=== PATIENT | female | born 1935 | race Caucasian/White ===

== ENCOUNTER 2018-11-08 10:57 | Inpatient (IN) | payer MEDICARE, BC ==
[~2018-11-08] VITALS: Ht 162.6 cm; Wt 44.5 kg
[~2018-11-08 10:57] MED LIST: ASPI81TA31 PO; LEVO75TA7 PO; MIDO5TAB PO; ONDA4TAB5 PO; SERT25TA PO; SULF1TAB48 PO
[2018-11-08] MEDS ORDERED: ACETAMINOPHEN 650 MG SUPP.RECT RC ONE ×3 (11:06→12:36)
[2018-11-08] MEDS ORDERED: IV NORMAL SALINE 500 ML BAG IV ONE (11:15)
[2018-11-08 11:20] LABS: *BILIRUBIN,URIN NEGATIVE (NEGATIVE); *BLOOD, URINE 3+ (NEGATIVE); *CLARITY,URINE CLOUDY (CLEAR); *COLOR,URINE LIGHT YELLOW (YELLOW); *KETONES,URINE NEGATIVE (NEGATIVE); *UROBILINOGEN,URINE 0.2 E.U./dl (NORMAL); LEUKOCYTE ESTERASE ,URINE 3+ (NEGATIVE); NITRITE, URINE NEGATIVE (NEGATIVE); UGLUCOSE NEGATIVE (NEGATIVE)
[2018-11-08 11:27] LABS: RBC,URINE TNTC /HPF (0-3)
[2018-11-08 11:28] LABS: BACTERIA,URINE MANY /HPF (NONE SEEN); SQUAMOUS EPITHELIAL CELL,UR NONE SEEN /HPF (NONE SEEN)
[2018-11-08 11:36] LABS: BASOPHILS % (AUTO) 0.6 % (0.0-2.0); EOSINOPHILS % (AUTO) 0.9 % (0.0-7.0); HEMATOCRIT 31.1 % (31.2-41.9); LYMPHOCYTES # (AUTO) 1.2 K/uL (20.0-40.0); LYMPHOCYTES % (AUTO) 21.9 % (20.5-51.5); MEAN CORPUSCULAR HEMOGLOBIN 27.9 uug (24.7-32.8); MEAN CORPUSCULAR HGB CONC 32 g/dL (32.3-35.6); MEAN CORPUSCULAR VOLUME 86.2 fL (75.5-95.3); MONOCYTES # (AUTO) 0.4 K/uL (2.0-10.0); MONOCYTES % (AUTO) 7.9 % (0.0-11.0); NEUTROPHILS # (AUTO) 3.8 K/uL (1.8-8.9); NEUTROPHILS % (AUTO) 68.7 % (38.5-71.5); PLATELET COUNT (AUTO) 450 K/uL (179-408); WHITE BLOOD COUNT (AUTO) 5.5 K/uL (3.8-11.8)
[2018-11-08 11:47] LABS: CARBON DIOXIDE 22 mmol/L (21-32); CHLORIDE 106 mmol/L (98-107); CREATININE 0.7 mg/dL (0.6-1.3); GLUCOSE 107 mg/dL (74-106); POTASSIUM 3.8 mmol/L (3.5-5.1); UREA NITROGEN, BLOOD 19 mg/dL (7-18)
[2018-11-08 11:53] LABS: ALANINE AMINOTRANSFERASE 13 U/L (14-59); ALKALINE PHOSPHATASE 130 U/L (50-136); ASPARTATE AMINOTRANSFERASE 8 U/L (15-37); BILIRUBIN,DIRECT 0.1 mg/dL (0.0-0.2); BILIRUBIN,TOTAL 0.2 mg/dL (0.2-1.0)
[2018-11-08] MEDS ORDERED: IV NORMAL SALINE 1000 ML BAG IV ONE (12:15)
[2018-11-08] MEDS ORDERED: MEROPENEM 1,000 MG in IV NORMAL SALINE 100 ML IV ONE (12:15)
[2018-11-08] MEDS ORDERED: MEROPENEM 1,000 MG in IV NORMAL SALINE 250 ML IV ONE (12:15)
--- NOTE | 2018-11-08 12:30 | NUR ---
Pt to be admitted to tele, SBAR report given to Margarita RN via telephone. Pt resting with NAD noted at this time. spoke with pt's family regarding plan of care.
--- NOTE | 2018-11-08 13:00 | NUR ---
DR. SAL AT BEDSIDE.
--- NOTE | 2018-11-08 13:05 | NUR ---
Pt trans to tele floor, NAD noted.
--- NOTE | 2018-11-08 13:30 | NUR ---
received patient from Er and admitted to tele, patient admitted with DX sepsis, patient is confused but alert and oriented x1, no sob noted at this time, no c/o pain at this time. MD aware patient in the unit. bed low position and bed alarm on, side rails up x2. treatment plan continue.
[2018-11-08] MEDS ORDERED: MIDODRINE HCL 5 MG TABLET PO PRN (13:45)
[2018-11-08] MEDS ORDERED: ACETAMINOPHEN 650 MG SUPP.RECT RC PRN (13:45)
[2018-11-08] MEDS ORDERED: ONDANSETRON 4 MG/2 ML VIAL IV PRN (13:45)
[2018-11-08] MEDS: ENOXAPARIN SODIUM 40 MG/0.4 ML DISP.SYRIN SQ SCH (13:45)
[2018-11-08] MEDS ORDERED: MEROPENEM 1 G in IV NORMAL SALINE 100 ML IV SCH (14:00)
[2018-11-08 16:25] VITALS: BP 97/36
[2018-11-08] MEDS: IV D5/ 0.9% NACL 1,000 ML IV PRN (17:16)
--- NOTE | 2018-11-08 18:55 | NUR ---
patient is confused but alert and oriented to name, unable to comprehend, no sob noted at this time, no c/o pain at this time. . bed low position and bed alarm on, side rails up x2. IV fluid continue.treatment plan continue with night nurse.
[2018-11-08 20:00] VITALS: BP 103/78
--- NOTE | 2018-11-08 20:00 | NUR ---
Received patient AAOx1 to self. No acute distress at this time. No signs and symptoms of acute distress at this time. Denies pain. No SOB. IV on right wrist intact and patent with D5 NS running at 100ml/hr. Comfort and safety measures implemented. Bed in lowest and locked position. Call light within reach. All needs met at this time. Will continue to monitor throughout shift.
[2018-11-08 23:55] VITALS: BP 95/38
[2018-11-09] MEDS ORDERED: MEROPENEM 1 G in IV NORMAL SALINE 100 ML IV SCH ×2
[2018-11-09] MEDS: MEROPENEM 1 G in IV NORMAL SALINE 100 ML IV SCH ×3 (00:04→23:07)
[2018-11-09 03:05] VITALS: BP 97/58
[2018-11-09 03:42] VITALS: BP 90/36
[2018-11-09] MEDS: IV D5/ 0.9% NACL 1,000 ML IV PRN ×2 (06:09→19:07)
--- NOTE | 2018-11-09 06:16 | NUR ---
Patient slept well between care. Patient is now AAOx3. Denies pain. No SOB. Afebrile. Continue NPO. Swallow eval to be completed. Patient SBP trended 90's throughout shift. Last BP 93/40. Sinus moises on tele monitor. D5 NS running at 100ml/hr. Spoke to randy Murphy on the phone. Discussed plan of care. Verbalized understanding. Call light within reach. Continue plan of care.
[2018-11-09 06:44] LABS: BASOPHILS % (AUTO) 0.5 % (0.0-2.0); EOSINOPHILS # (AUTO) 0.3 K/uL (0.0-0.7); EOSINOPHILS % (AUTO) 5.9 % (0.0-7.0); HEMATOCRIT 30.2 % (31.2-41.9); HEMOGLOBIN 9.8 g/dL (10.9-14.3); LYMPHOCYTES # (AUTO) 1.2 K/uL (20.0-40.0); LYMPHOCYTES % (AUTO) 21.5 % (20.5-51.5); MEAN CORPUSCULAR HEMOGLOBIN 28.3 uug (24.7-32.8); MEAN CORPUSCULAR HGB CONC 33 g/dL (32.3-35.6); MEAN CORPUSCULAR VOLUME 87.2 fL (75.5-95.3); MONOCYTES # (AUTO) 0.5 K/uL (2.0-10.0); MONOCYTES % (AUTO) 9.1 % (0.0-11.0); NEUTROPHILS # (AUTO) 3.4 K/uL (1.8-8.9); PLATELET COUNT (AUTO) 412 K/uL (179-408); RED BLOOD CELL COUNT(AUTO) 3.46 MIL/uL (3.63-4.92); WHITE BLOOD COUNT (AUTO) 5.5 K/uL (3.8-11.8)
[2018-11-09 07:00] LABS: CARBON DIOXIDE 24 mmol/L (21-32); CHLORIDE 111 mmol/L (98-107); CREATININE 0.6 mg/dL (0.6-1.3); GLUCOSE 82 mg/dL (74-106); MAGNESIUM 1.7 mg/dL (1.8-2.4); PHOSPHOROUS 2.1 mg/dL (2.5-4.9); POTASSIUM 3.6 mmol/L (3.5-5.1); UREA NITROGEN, BLOOD 16 mg/dL (7-18)
[2018-11-09 08:01] VITALS: BP 107/34
[2018-11-09] MEDS: ASPIRIN 81 MG TAB.CHEW PO SCH (08:38)
[2018-11-09] MEDS: SERTRALINE HCL 50 MG TABLET PO SCH (08:38)
[2018-11-09] MEDS: PANTOPRAZOLE SODIUM 40 MG VIAL IV SCH (08:38)
[2018-11-09 11:42] VITALS: BP 102/41
[2018-11-09] MEDS ORDERED: Z GUARD REMEDY PASTE 57 GM TUBE TOP PRN (11:45)
--- NOTE | 2018-11-09 11:47 | NUR ---
WOUND CARE CONSULT: PT PRESENTS WITH RT ELBOW SKIN TEAR, LEFT HAND DRY SCAB, BRUISING AND DISCOLORATION TO ARMS AND LEGS WELL NONBLANCHABLE REDNESS TO SACRAL AREA, PRESENT ON ADMISSION. RECOMMENDATIONS MADE FOR SKIN PROTECTION AND WOUND CARE. DISCUSSED WITH NURSING STAFF. UROSTOMY NOTED. PERIANAL RAISED AREAS NOTED. DEFER TO MD. WILL SEE PRN. MD IN AGREEMENT WITH PLAN OF CARE. Addendum: 11/09/18 at 1154 by JEFFREY LUCIO RN FIRST STEP LOW AIRLOSS MATTRESS ON ORDER.
[2018-11-09] MEDS: ENOXAPARIN SODIUM 40 MG/0.4 ML DISP.SYRIN SQ SCH (15:02)
[2018-11-09 16:00] VITALS: BP 101/48
[2018-11-09] MEDS ORDERED: NEUTRA PHOS PACKET PO ONE (16:00)
--- NOTE | 2018-11-09 18:41 | NUR ---
Initiated dressing on R elbow skin tear and mepilex on sacrum. Discoloration on extremities and elbow and feet edema noted. Assisted with feeding. Urostomy in place, strong odor noted. bed low and locked. bed alarm on. will cont to monitor.
--- NOTE | 2018-11-09 20:00 | NUR ---
PATIENT IS AWAKE, AAOX1 WITH CONFUSION. NO S/S OF PAIN OR ACUTE DISTRESS ON ASSESSMENT. SAFETY MEASURES IN PLACE, WILL CONTINUE TO MONITOR PATIENT
[2018-11-09] MEDS: Z GUARD REMEDY PASTE 57 GM TUBE TOP SCH (20:25)
[2018-11-09 20:29] VITALS: BP 95/42
[2018-11-10 06:32] VITALS: BP 122/47
--- NOTE | 2018-11-10 06:44 | NUR ---
PATIENT SLEEPING, NO S/S OF PAIN OR DISTRESS AT PRESENT. NO FEVER ON THIS SHIFT, EPISODES OF CONFUSION BUT ABLE TO REDIRECT. SAFETY MAINTAINED AT ALL TIMES
[2018-11-10] MEDS: IV D5/ 0.9% NACL 1,000 ML IV PRN ×2 (09:23→23:55)
[2018-11-10] MEDS: Z GUARD REMEDY PASTE 57 GM TUBE TOP SCH ×2 (09:28→20:33)
[2018-11-10] MEDS: SERTRALINE HCL 50 MG TABLET PO SCH (09:29)
[2018-11-10] MEDS: PANTOPRAZOLE SODIUM 40 MG VIAL IV SCH (09:29)
[2018-11-10] MEDS: ASPIRIN 81 MG TAB.CHEW PO SCH (09:29)
[2018-11-10 11:26] VITALS: BP 116/48
[2018-11-10] MEDS: MEROPENEM 1 G in IV NORMAL SALINE 100 ML IV SCH ×2 (11:38→23:52)
[2018-11-10] MEDS: ENOXAPARIN SODIUM 40 MG/0.4 ML DISP.SYRIN SQ SCH (13:24)
[2018-11-10 15:34] VITALS: BP 109/38
--- NOTE | 2018-11-10 18:42 | NUR ---
PATIENT AWAKE RESTING. NO S/S OF DISTRESS NOTED, DENIES ANY PAIN. CONFUSED BUT REDIRECTABLE. SAFETY PRECAUTIONS IMPLEMENTED. WILL ENDORSE CARE TO ONCOMING SHIFT.
--- NOTE | 2018-11-10 18:44 | NUR ---
PATIENT AWAKE, NO DISTRESS NOTED OR COMPLAINTS OF PAIN. FAMILY AT BEDSIDE. SAFETY PRECAUTIONS IMPLEMENTED. WILL ENDORSE CARE TO ONCOMING SHIFT.
--- NOTE | 2018-11-10 20:00 | NUR ---
Received patient from the day shift. Patient is AOx2. No acute distress noted at this time. Denies pain. Denies SOB. IV on right forearm is intact and patent is on D5NS running at 100ml/hr. Comfort and safety measures implemented. Bed is in low and locked position, rails are up x2. Call light within reach. All needs are met at this time. Will continue to monitor through the shift.
[2018-11-10 20:10] VITALS: BP 123/50
[2018-11-11 04:00] VITALS: BP 152/34
--- NOTE | 2018-11-11 06:31 | NUR ---
Patient is awake, AOx2, confused at times, poor short term memory. Attempted to leave the bed once. No acute distress noted at this time. Denies pain. Denies SOB. IV on right forearm is intact and patent is on D5NS running at 100ml/hr, dressing was changed. Skin tear was cleansed and dressed. Comfort and safety measures implemented. Bed is in low and locked position, rails are up x2. Call light within reach. All needs are met at this time. Will endorse the report to the day shift.
--- NOTE | 2018-11-11 07:15 | NUR ---
PATIENT RECEIVED ON BED, AWAKE AAOX2 WITH PERIODS OF FORGETFULNESS AND CONFUSION. NO ACUTE DISTRESS NOTED. IV ACCESS ON RIGHT FOREARM #22 INTACT AND PATENT RUNNING D5NS @ 100 CC/HR INFUSING WELL UROSTOMY IN PLACE AND DRAINING CLEAR YELLOW URINE. ON AIR MATTRESS BED ALARM ON, PATIENT HAS TENDENCY TO TRY TO GET OU OF BED. WOUND DRESSING ON RIGHT FOREARM CLEAN AND DRY. COMFORT MEASURES PROVIDED CALL LIGHT WITHIN REACH. WILL CONTINUE TO MONITOR CLOSELY.
[2018-11-11] MEDS: SERTRALINE HCL 50 MG TABLET PO SCH (09:33)
[2018-11-11] MEDS: ASPIRIN 81 MG TAB.CHEW PO SCH (09:33)
[2018-11-11] MEDS: PANTOPRAZOLE SODIUM 40 MG VIAL IV SCH (09:33)
[2018-11-11] MEDS: Z GUARD REMEDY PASTE 57 GM TUBE TOP SCH (09:34)
[2018-11-11 11:16] VITALS: BP 112/64
[2018-11-11] MEDS: MEROPENEM 1 G in IV NORMAL SALINE 100 ML IV SCH (12:21)
--- NOTE | 2018-11-11 12:23 | NUR ---
PATIENT REFUSED WOUND PICTURES FOR DISCHARGE AND ALSO REFUSED DRESSING CHANGE.
[2018-11-11] MEDS: ENOXAPARIN SODIUM 40 MG/0.4 ML DISP.SYRIN SQ SCH ×2 (13:15→13:17)
--- NOTE | 2018-11-11 13:45 | NUR ---
PATIENT DISCHARGED TO THE [facility] IN STABLE CONDITION. DISCHARGE PAPERS AND INSTRUCTIONS GIVEN AND EXPLAINED TO PATIENT AND PATIENT'S SON EZEQUIEL FRANCIS, PRESCRIPTIONS FAXED TO [facility] . REFUSED DISCHARGE PICTURES. IV ACCESS REMOVED WELL TOLERATED. ID BAND DISPOSED PROPERLY PATIENT LEFT HOSPITAL VIA AMBULANCE ACCOMPANIED BY 2 EMT.
== END 2018-11-11 13:30 | DRG 871 ==
LOC: ER 10:57 → TELE3 12:57 → MEDSURG3 11-09 10:24
DX: A40.9 Streptococcal sepsis, unspecified (principal); G93.41 Metabolic encephalopathy; N39.0 Urinary tract infection, site not specified; G91.2 (Idiopathic) normal pressure hydrocephalus; D68.59 Other primary thrombophilia; I50.42 Chronic combined systolic (congestive) and diastolic (congestive) heart failure; E46 Unspecified protein-calorie malnutrition; Z68.1 Body mass index [BMI] 19.9 or less, adult; R65.20 Severe sepsis without septic shock; F02.80 Dementia in other diseases classified elsewhere, unspecified severity, without behavioral disturbance, psychotic disturbance, mood disturbance, and anxiety; E03.9 Hypothyroidism, unspecified; K57.30 Diverticulosis of large intestine without perforation or abscess without bleeding; G30.9 Alzheimer's disease, unspecified; Z85.51 Personal history of malignant neoplasm of bladder; Z90.710 Acquired absence of both cervix and uterus; Z93.3 Colostomy status; Z93.6 Other artificial openings of urinary tract status; Z79.82 Long term (current) use of aspirin; Z79.899 Other long term (current) drug therapy; Z79.890 Hormone replacement therapy; Z85.841 Personal history of malignant neoplasm of brain; Z92.3 Personal history of irradiation; Z86.73 Personal history of transient ischemic attack (TIA), and cerebral infarction without residual deficits; Z74.01 Bed confinement status
CPT/HCPCS: 36415; 70030-TC; 71045; 83605; 83735; 84100; 85025; 85730; 87040; 87086; 87400; 92526; 92610; 93005; 97110; 97112; 97165; 97530; A4663; C9113; G0378; J1650; J2185; J3490; J7030; J7040; J7042

== ENCOUNTER 2018-11-19 18:25 | Inpatient (IN) | payer MEDICARE, BC ==
[~2018-11-19] VITALS: Ht 152.4 cm; Wt 47.4 kg
[~2018-11-19 18:25] MED LIST changes: -LEVO75TA7 PO; -ONDA4TAB5 PO; -SULF1TAB48 PO
[2018-11-19] MEDS ORDERED: ONDA4TAB10 PO (18:40)
[2018-11-19] MEDS ORDERED: LEVO75TA7 PO (18:40)
[2018-11-19] MEDS ORDERED: IV NORMAL SALINE 1000 ML BAG IV ONE (19:00)
[2018-11-19] MEDS ORDERED: CEFTRIAXONE 1 G in IV DEXTROSE 5% 50 ML IV ONE (19:00)
--- NOTE | 2018-11-19 19:23 | NUR ---
Received report from Shabana RN, pt. back from CT, alert to painful stimuli, daughter at bedside, roblero intact draining straw yellow fluid,
--- NOTE | 2018-11-19 19:35 | NUR ---
Urine specimen from urostomy bag, straw yellow w/ small amt. of sedimentation noted, sent top lab, Phleb. tech. at bedside for blood draw,
[2018-11-19] MEDS ORDERED: CEFTRIAXONE 1 G VIAL ONE (19:40)
[2018-11-19 19:47] LABS: *BILIRUBIN,URIN NEGATIVE (NEGATIVE); *BLOOD, URINE 2+ (NEGATIVE); *CLARITY,URINE CLOUDY (CLEAR); *COLOR,URINE YELLOW (YELLOW); *KETONES,URINE NEGATIVE (NEGATIVE); *UROBILINOGEN,URINE 0.2 E.U./dl (NORMAL); LEUKOCYTE ESTERASE ,URINE 3+ (NEGATIVE); NITRITE, URINE POSITIVE (NEGATIVE); UGLUCOSE NEGATIVE (NEGATIVE)
[2018-11-19 19:54] LABS: BASOPHILS # (AUTO) 0.3 K/uL (0.0-8.0); BASOPHILS % (AUTO) 1.1 % (0.0-2.0); HEMATOCRIT 31.3 % (31.2-41.9); HEMOGLOBIN 10.2 g/dL (10.9-14.3); LYMPHOCYTES # (AUTO) 0.5 K/uL (20.0-40.0); LYMPHOCYTES % (AUTO) 2.1 % (20.5-51.5); MEAN CORPUSCULAR HEMOGLOBIN 27.6 uug (24.7-32.8); MEAN CORPUSCULAR HGB CONC 33 g/dL (32.3-35.6); MEAN CORPUSCULAR VOLUME 84.5 fL (75.5-95.3); MONOCYTES # (AUTO) 0.9 K/uL (2.0-10.0); MONOCYTES % (AUTO) 3.3 % (0.0-11.0); NEUTROPHILS # (AUTO) 24.4 K/uL (1.8-8.9); NEUTROPHILS % (AUTO) 93.5 % (38.5-71.5); PLATELET COUNT (AUTO) 455 K/uL (179-408); WHITE BLOOD COUNT (AUTO) 26.1 K/uL (3.8-11.8)
[2018-11-19 19:58] LABS: BACTERIA,URINE MANY /HPF (NONE SEEN); RBC,URINE 50-80 /HPF (0-3); WBC,URINE 80-100 /HPF (0-3)
[2018-11-19 20:02] LABS: CARBON DIOXIDE 26 mmol/L (21-32); CHLORIDE 102 mmol/L (98-107); CREATININE 1.2 mg/dL (0.6-1.3); GLUCOSE 110 mg/dL (74-106); POTASSIUM 3.7 mmol/L (3.5-5.1); UREA NITROGEN, BLOOD 25 mg/dL (7-18)
[2018-11-19 20:26] LABS: ALANINE AMINOTRANSFERASE 14 U/L (14-59); ALKALINE PHOSPHATASE 127 U/L (50-136); ASPARTATE AMINOTRANSFERASE 13 U/L (15-37); BILIRUBIN,DIRECT 0.2 mg/dL (0.0-0.2); BILIRUBIN,TOTAL 0.4 mg/dL (0.2-1.0); TOTAL PROTEIN, SERUM 6.1 g/dL (6.4-8.2)
--- NOTE | 2018-11-19 20:27 | NUR ---
Called [facility] to page Fer Rolon NP.
--- NOTE | 2018-11-19 21:17 | NUR ---
Gave report to Stevie RN, pt. to go into CCU3 for HANSEL
[2018-11-19 21:45] VITALS: BP 101/54
--- NOTE | 2018-11-19 21:45 | NUR ---
Pt. taken off unit via stretcher, NAD
[2018-11-19 22:00] VITALS: BP 99/47
[2018-11-19] MEDS ORDERED: MORPHINE SULFATE 2 MG/1 ML DISP.SYRIN IV PRN (22:45)
[2018-11-19] MEDS ORDERED: MIRALAX 17 GM POWD.PACK PO PRN (22:45)
[2018-11-19] MEDS ORDERED: ONDANSETRON 4 MG/2 ML VIAL IV PRN (22:45)
[2018-11-19] MEDS ORDERED: ACETAMINOPHEN 325 MG TABLET PO PRN (22:45)
[2018-11-19] MEDS ORDERED: TEMAZEPAM 7.5 MG CAPSULE PO PRN (22:45)
[2018-11-19] MEDS ORDERED: NOREPINEPHRINE BITARTRATE 8 MG in IV DEXTROSE 5% 500 ML IV PRN ×2 (22:45→23:45)
[2018-11-19 23:00] VITALS: BP 105/38
--- NOTE | 2018-11-19 23:07 | NUR ---
Elver bardales in ED - 11/19/18 at 2308 by GAMALIELPP Pt. taken off unit via stretcher, NAD
[2018-11-19] MEDS ORDERED: MEROPENEM 1 G in IV NORMAL SALINE 100 ML IV ONE (23:30)
[2018-11-20] VITALS (55 sets, daily range): BP systolic 69–146; BP diastolic 27–89
[2018-11-20] MEDS ORDERED: NOREPINEPHRINE BITARTRATE 4 MG/4 ML VIAL IV ONE (00:02)
[2018-11-20] MEDS ORDERED: MEROPENEM 1 G VIAL IV ONE (00:13)
[2018-11-20 04:54] LABS: BASOPHILS # (AUTO) 0.1 K/uL (0.0-8.0); BASOPHILS % (AUTO) 0.4 % (0.0-2.0); EOSINOPHILS # (AUTO) 0.1 K/uL (0.0-0.7); EOSINOPHILS % (AUTO) 0.4 % (0.0-7.0); HEMATOCRIT 28.3 % (31.2-41.9); HEMOGLOBIN 9.2 g/dL (10.9-14.3); LYMPHOCYTES # (AUTO) 0.6 K/uL (20.0-40.0); LYMPHOCYTES % (AUTO) 3.7 % (20.5-51.5); MEAN CORPUSCULAR HEMOGLOBIN 27.8 uug (24.7-32.8); MEAN CORPUSCULAR HGB CONC 33 g/dL (32.3-35.6); MEAN CORPUSCULAR VOLUME 85.5 fL (75.5-95.3); MONOCYTES # (AUTO) 0.7 K/uL (2.0-10.0); NEUTROPHILS # (AUTO) 15.3 K/uL (1.8-8.9); NEUTROPHILS % (AUTO) 91.5 % (38.5-71.5); PLATELET COUNT (AUTO) 428 K/uL (179-408); RED BLOOD CELL COUNT(AUTO) 3.31 MIL/uL (3.63-4.92); WHITE BLOOD COUNT (AUTO) 16.8 K/uL (3.8-11.8)
[2018-11-20 05:08] LABS: IRON, SERUM 11 ug/dL (50-175)
[2018-11-20 05:10] LABS: ALANINE AMINOTRANSFERASE 11 U/L (14-59); ALKALINE PHOSPHATASE 109 U/L (50-136); ASPARTATE AMINOTRANSFERASE 13 U/L (15-37); BILIRUBIN,TOTAL 0.3 mg/dL (0.2-1.0); CARBON DIOXIDE 26 mmol/L (21-32); CHLORIDE 107 mmol/L (98-107); GLUCOSE 93 mg/dL (74-106); MAGNESIUM 1.7 mg/dL (1.8-2.4); PHOSPHOROUS 3.1 mg/dL (2.5-4.9); POTASSIUM 3.6 mmol/L (3.5-5.1); TOTAL PROTEIN, SERUM 5.4 g/dL (6.4-8.2); UREA NITROGEN, BLOOD 22 mg/dL (7-18)
[2018-11-20] MEDS: LEVOTHYROXINE SODIUM 75 MCG TABLET PO SCH (07:57)
[2018-11-20] MEDS: ASPIRIN 81 MG TAB.CHEW PO SCH (08:10)
[2018-11-20] MEDS: MEROPENEM 1 G in IV NORMAL SALINE 100 ML IV SCH ×2 (08:19→21:37)
--- NOTE | 2018-11-20 08:30 | NUR ---
Received patient on levophed drip at 4 mcg/min, will observe and titrate to keep mean > 60. Natan Briceño RN
[2018-11-20] MEDS ORDERED: Medication Not On Formulary EA (Sertraline Hcl (Zoloft) 12.5 MG) PO SCH (09:00)
[2018-11-20] MEDS ORDERED: MEROPENEM 1 G in IV NORMAL SALINE 100 ML IV SCH (09:00)
[2018-11-20] MEDS ORDERED: MAGNESIUM SULFATE/D5W 100 ML IV SCH (10:30)
--- NOTE | 2018-11-20 12:30 | NUR ---
Daughter in and visiting with patient, and I updated on present condition, and vs. Patient sbp 110, and levphed at 4-6mcg/min. SB on monitor. Natan Briceño RN
--- NOTE | 2018-11-20 14:30 | NUR ---
Patient had left upper arm picc line place, and chest xray done for placement. Natan Briceño RN
--- NOTE | 2018-11-20 18:30 | NUR ---
Patient went to CT chest without contrast, and back to bed without problem. Patient off levophed drip since mid afternoon, and sbp >110. Natan Briceño RN
[2018-11-21] VITALS (11 sets, daily range): BP systolic 114–138; BP diastolic 49–75
[2018-11-21 05:20] LABS: BASOPHILS % (AUTO) 0.4 % (0.0-2.0); EOSINOPHILS # (AUTO) 0.4 K/uL (0.0-0.7); EOSINOPHILS % (AUTO) 3.3 % (0.0-7.0); HEMATOCRIT 29.6 % (31.2-41.9); HEMOGLOBIN 9.8 g/dL (10.9-14.3); LYMPHOCYTES # (AUTO) 0.8 K/uL (20.0-40.0); LYMPHOCYTES % (AUTO) 7.1 % (20.5-51.5); MEAN CORPUSCULAR HGB CONC 33 g/dL (32.3-35.6); MEAN CORPUSCULAR VOLUME 84.9 fL (75.5-95.3); MONOCYTES # (AUTO) 0.6 K/uL (2.0-10.0); MONOCYTES % (AUTO) 5.7 % (0.0-11.0); NEUTROPHILS # (AUTO) 9.1 K/uL (1.8-8.9); NEUTROPHILS % (AUTO) 83.5 % (38.5-71.5); PLATELET COUNT (AUTO) 411 K/uL (179-408); RED BLOOD CELL COUNT(AUTO) 3.49 MIL/uL (3.63-4.92); WHITE BLOOD COUNT (AUTO) 10.9 K/uL (3.8-11.8)
[2018-11-21 05:36] LABS: CARBON DIOXIDE 24 mmol/L (21-32); CHLORIDE 106 mmol/L (98-107); CREATININE 0.7 mg/dL (0.6-1.3); GLUCOSE 82 mg/dL (74-106); MAGNESIUM 2.2 mg/dL (1.8-2.4); PHOSPHOROUS 2.7 mg/dL (2.5-4.9); POTASSIUM 3.7 mmol/L (3.5-5.1); UREA NITROGEN, BLOOD 18 mg/dL (7-18)
[2018-11-21] MEDS: LEVOTHYROXINE SODIUM 75 MCG TABLET PO SCH (06:48)
--- NOTE | 2018-11-21 07:26 | NUR ---
EOSS PATIENT HAS BEEN COOPERATIVE, ALERT/ORIENTED X 2 THROUGHOUT SHIFT. PATIENT HAS DENIED PAIN. LEFT UPPER ARM PICC FLUSHED WELL AT BEGINNING AND MIDDLE OF SHIFT. O400 CHECK 1 PORT CLOGGED, AND NO BLOOD RETURN FROM ANY PORT. PATIENT FOLDS ARMS ON CHEST AND INHIBITS FLOW THROUGH PICC. UROSTOMY HAS ADEQUATE URINE FLOW. PATIENT'S SON CALLED FOR UPDATE. NO OTHER C/O AT THIS TIME.
[2018-11-21] MEDS: ASPIRIN 81 MG TAB.CHEW PO SCH (08:49)
[2018-11-21] MEDS: MEROPENEM 1 G in IV NORMAL SALINE 100 ML IV SCH (08:49)
--- NOTE | 2018-11-21 14:52 | NUR ---
WOUND CARE CONSULT: PT PRESENTS WITH BRUISING, DISCOLORATION TO LOWER LEGS, FECAL INCONTINENCE AND BLANCHABLE REDNESS TO SACRAL AREA, PRESENT ON ADMISSION. RECOMMENDATIONS MADE FOR SKIN PROTECTION. DISCUSSED WITH NURSING STAFF. PT ON FIRST STEP CIRRUS LOW AIRLOSS MATTRESS. UROSTOMY DRAINAGE BAG NOTED. PT HAS VERY FRAGILE SKIN. WILL SEE PRN. CURRENT MERYL SCORE IS 12. MD IN AGREEMENT WITH PLAN OF CARE. Addendum: 11/21/18 at 1455 by JEFFREY LUCIO RN Amended: Links added.
[2018-11-21] MEDS ORDERED: Z GUARD REMEDY PASTE 57 GM TUBE TOP PRN (15:00)
--- NOTE | 2018-11-21 17:25 | NUR ---
Pt left the floor with RN and BENTON to 314-T. Full SBAR report given to RN Ventura. Pt stable and nad noted upon leaving the unit. Addendum: 11/21/18 at 1743 by KALIA DYER RN Spoke with Valeri Fernandezdaughter): and aware of pt's transfer to 314-T.
--- NOTE | 2018-11-21 19:26 | NUR ---
Received pt awake, alert and orientedx2. Pt shows no signs of acute distress. Pt iv intact.Pt urostomy bag intact and dwelling well. Call light within reach. Safety and comfort provided. Will continue to monitor.
[2018-11-21] MEDS: Z GUARD REMEDY PASTE 57 GM TUBE TOP SCH (21:14)
[2018-11-21] MEDS: PIPERACILLIN/TAZOBACTAM/D5W 3.375 G in PREMIXED 1 EACH IV SCH (21:14)
[2018-11-22] VITALS: BP 119/57
[2018-11-22 04:00] VITALS: BP 112/40
[2018-11-22] MEDS: PIPERACILLIN/TAZOBACTAM/D5W 3.375 G in PREMIXED 1 EACH IV SCH (05:16)
--- NOTE | 2018-11-22 06:22 | NUR ---
Pt slept throughout the shift. Pt shows no signs of acute distress. Pt iv intact. Urostomy tube intact. Pt on Sinus Bradycardia on monitor. Prescribed medication given and pt tolerated it well. Pt turned and repositioned. Call light within reach. Safety and comfort provided. Will endorse accordingly to incoming nurse for continuity of care.
[2018-11-22] MEDS: LEVOTHYROXINE SODIUM 75 MCG TABLET PO SCH (06:35)
[2018-11-22 07:16] LABS: BASOPHILS # (AUTO) 0.1 K/uL (0.0-8.0); BASOPHILS % (AUTO) 0.9 % (0.0-2.0); EOSINOPHILS # (AUTO) 0.4 K/uL (0.0-0.7); EOSINOPHILS % (AUTO) 4.9 % (0.0-7.0); HEMATOCRIT 27.5 % (31.2-41.9); HEMOGLOBIN 9.1 g/dL (10.9-14.3); LYMPHOCYTES % (AUTO) 11.8 % (20.5-51.5); MEAN CORPUSCULAR HGB CONC 33 g/dL (32.3-35.6); MEAN CORPUSCULAR VOLUME 84.7 fL (75.5-95.3); MONOCYTES # (AUTO) 0.7 K/uL (2.0-10.0); MONOCYTES % (AUTO) 8.2 % (0.0-11.0); NEUTROPHILS % (AUTO) 74.2 % (38.5-71.5); PLATELET COUNT (AUTO) 410 K/uL (179-408); RED BLOOD CELL COUNT(AUTO) 3.24 MIL/uL (3.63-4.92); WHITE BLOOD COUNT (AUTO) 8.1 K/uL (3.8-11.8)
[2018-11-22 07:38] LABS: CARBON DIOXIDE 25 mmol/L (21-32); CHLORIDE 105 mmol/L (98-107); CREATININE 0.6 mg/dL (0.6-1.3); GLUCOSE 72 mg/dL (74-106); PHOSPHOROUS 2.5 mg/dL (2.5-4.9); POTASSIUM 3.6 mmol/L (3.5-5.1); UREA NITROGEN, BLOOD 15 mg/dL (7-18)
[2018-11-22] MEDS: ASPIRIN 81 MG TAB.CHEW PO SCH (08:42)
[2018-11-22] MEDS: Z GUARD REMEDY PASTE 57 GM TUBE TOP SCH ×2 (08:43→20:33)
[2018-11-22 11:18] VITALS: BP 91/38
[2018-11-22] MEDS: LINEZOLID 600 MG TABLET PO SCH ×2 (11:37→20:33)
[2018-11-22 15:10] VITALS: BP 110/37
[2018-11-22 20:00] VITALS: BP 123/50
--- NOTE | 2018-11-22 20:00 | NUR ---
Received patient laying comfortably in bed. Denies pain and SOB. A/O 2-3. HOB elevated. TELE SB at 53. Noted bilateral upper and lower ext. bruises. PICC line on the left upper arm, patent and intact. On air mattress. Contact precaution observed. Patient has a urostomy draining clear and yellow urine. Safety initiated. Call light within reach. Will continue to monitor.
[2018-11-23] VITALS (7 sets, daily range): BP systolic 115–148; BP diastolic 41–68
--- NOTE | 2018-11-23 06:24 | NUR ---
Patient slept t/o shift. Vital signs stable. TELE NSR. Good urine output. All comfort and safety measures maintained t/o shift. All meds given as ordered. All needs met.
[2018-11-23] MEDS: LEVOTHYROXINE SODIUM 75 MCG TABLET PO SCH (06:32)
[2018-11-23] MEDS: LINEZOLID 600 MG TABLET PO SCH ×2 (09:16→20:11)
[2018-11-23] MEDS: ASPIRIN 81 MG TAB.CHEW PO SCH (09:16)
[2018-11-23] MEDS: Z GUARD REMEDY PASTE 57 GM TUBE TOP SCH ×2 (09:17→20:11)
[2018-11-23] MEDS ORDERED: LINE600T PO (13:00)
--- NOTE | 2018-11-23 17:43 | NUR ---
patient left on bed resting AAOX1-2 at times refusing treatment but reoriented easily. Saturation sbp wnl. sinus rhythm on telemetry monitoring. Skin with no new complications other than documented assessment upon admission. Will continue with care plan. dcd challenged by pt's daughter with case management involved.
--- NOTE | 2018-11-23 20:00 | NUR ---
Received patient laying comfortably in bed. Denies pain and SOB. A/O 2-3. HOB elevated. TELE SB SR at 58. Noted bilateral upper and lower ext. bruises. PICC line on the left upper arm met with resistance when flushed. On air mattress. Contact precaution observed. Patient has a urostomy draining clear and yellow urine. Safety initiated. Call light within reach. Will continue to monitor.
[2018-11-24 03:25] VITALS: BP 137/54
--- NOTE | 2018-11-24 05:47 | NUR ---
Patient slept intermittently t/o shift. Patient remains A/O x 2-3. Calm and cooperative. In room air. TELE SB at 49. Vital signs stable. Turned and repositioned Q2H. Urostomy is in place, pink in color and draining clear and yellow urine. Good urine output. Safety and comfort measures maintained t/o shift. All meds given as ordered. All needs met.
[2018-11-24] MEDS: LEVOTHYROXINE SODIUM 75 MCG TABLET PO SCH (06:33)
[2018-11-24 08:00] VITALS: BP 150/54
[2018-11-24] MEDS: ASPIRIN 81 MG TAB.CHEW PO SCH (09:10)
[2018-11-24] MEDS: LINEZOLID 600 MG TABLET PO SCH ×2 (09:10→21:01)
[2018-11-24] MEDS: Z GUARD REMEDY PASTE 57 GM TUBE TOP SCH ×2 (09:13→21:02)
[2018-11-24 11:00] VITALS: BP 95/48
--- NOTE | 2018-11-24 12:00 | NUR ---
Aracely Calixto DEPOSIT CLERK visits patient, updated on present condition, and orders written. Natan Briceño RN
[2018-11-24 16:00] VITALS: BP 126/63
--- NOTE | 2018-11-24 19:20 | NUR ---
RECEIVED PT ON BED. PT SHOWS NO SIGNS OF ACUTE DISTRESS. IV INTACT. UROSTOMY BAG INTACT. SAFETY AND COMFORT PROVIDED. WILL CONTINUE TO MONITOR.
[2018-11-24 21:27] VITALS: BP 151/88
--- NOTE | 2018-11-24 21:50 | NUR ---
HANDS OFF REPORT GIVEN TO FAISAL ANDRES. PT SHOWS NO SIGNS OF ACUTE DISTRESS. IV INTACT. UROSTOMY INTACT AND DWELLING WELL. SAFETY AND COMFORT PROVIDED. ALL NEEDS ARE MET. SITTER AT BEDSIDE FOR SAFETY.
--- NOTE | 2018-11-25 03:22 | NUR ---
HANDS OFF REPORT RECEIVED FROM FAISAL ANDRES. PT SHOWS NO SIGNS OF ACUTE DISTRESS. PT TURNED AND REPOSITIONED. IV INTACT. VIERA INTACT. SAFETY AND COMFORT PROVIDED. WILL CONTINUE TO MONITOR.
[2018-11-25 05:41] VITALS: BP 124/37
--- NOTE | 2018-11-25 06:25 | NUR ---
PT SLEPT INTERMITTENTLY. PT SHOWS NO SIGNS OF ACUTE DISTRESS. PT IV INTACT. PT UROSTOMY TUBE INTACT. PT WERE GIVEN HALF CUP OF FLUID EVERY TWO HOURS BY THE SITTER. PT TOLERATED IT WELL. PT TURNED AND REPOSITIONED. SAFETY AND COMFORT PROVIDED. WILL CONTINUE TO MONITOR.
[2018-11-25] MEDS: LEVOTHYROXINE SODIUM 75 MCG TABLET PO SCH (06:43)
--- NOTE | 2018-11-25 08:00 | NUR ---
Sleeping, appears comfortable, on moderate high back rest. Caregiver at bedside
[2018-11-25 09:00] VITALS: BP 138/80
--- NOTE | 2018-11-25 09:30 | NUR ---
Caregiver not at bedside. Assisted with breakfast. Sponge bath given. Repositioned comfortably
[2018-11-25] MEDS: LINEZOLID 600 MG TABLET PO SCH ×2 (09:51→20:52)
[2018-11-25] MEDS: Z GUARD REMEDY PASTE 57 GM TUBE TOP SCH ×2 (09:51→20:53)
[2018-11-25] MEDS: ASPIRIN 81 MG TAB.CHEW PO SCH (09:51)
[2018-11-25] MEDS ORDERED: IV NS 1000 ML 500 ML IV ONE (13:00)
--- NOTE | 2018-11-25 14:11 | NUR ---
NS 500 bolus given as ordered
[2018-11-25 16:56] VITALS: BP 117/49
--- NOTE | 2018-11-25 18:57 | NUR ---
Latest BP 117/49. Assisted with meal by caregiver. Repositioned. Kept dry and comfortable
[2018-11-25 19:07] VITALS: BP 141/45
--- NOTE | 2018-11-25 19:25 | NUR ---
RECEIVED PT AWAKE, ALERT AND ORIENTEDX2. PT SHOWS NO SIGNS OF ACUTE DISTRESS. IV INTACT. SPECK DYER AT BEDSIDE. UROSTOMY BAG INTACT. SAFETY AND COMFORT PROVIDED. WILL CONTINUE TO MONITOR.
[2018-11-26 03:14] VITALS: BP 118/39
--- NOTE | 2018-11-26 06:03 | NUR ---
PT SLEPT INTERMITTENTLY. PT SHOWS NO SIGNS OF ACUTE DISTRESS. IV INTACT. UROSTOMY BAG INTACT. CAREGIVER AT BEDSIDE. PT GIVEN FLUIDS Q2H BY CAREGIVER. PT HAD ONE BOWEL MOVEMENT. PRESCRIBED MEDICATION GIVEN AND PT TOLERATED IT WELL. CALL LIGHT WITHIN REACH. SAFETY AND COMFORT PROVIDED. WILL ENDORSE ACCORDINGLY TO INCOMING NURSE FOR CONTINUITY OF CARE.
[2018-11-26] MEDS: LEVOTHYROXINE SODIUM 75 MCG TABLET PO SCH (06:36)
[2018-11-26] MEDS: ASPIRIN 81 MG TAB.CHEW PO SCH (08:42)
[2018-11-26] MEDS: LINEZOLID 600 MG TABLET PO SCH (08:42)
[2018-11-26] MEDS: Z GUARD REMEDY PASTE 57 GM TUBE TOP SCH (08:43)
[2018-11-26 10:49] VITALS: BP 121/54
[2018-11-26 15:12] VITALS: BP 104/35
--- NOTE | 2018-11-26 19:10 | NUR ---
Patient has been cooperative with care, all needs met, no distress noted throughout shift. Patient awaiting discharge to [facility]. Ambulance due to arrive at 745.
--- NOTE | 2018-11-26 19:50 | NUR ---
AMBULANCE AT BEDSIDE TO HAND MOUNTER PATIENT. FAMILY AT BEDSIDE.
--- NOTE | 2018-11-26 20:00 | NUR ---
PATIENT LEFT FACILITY IN STABLE CONDITION VIA AMBULANCE. ALL NEEDS ATTENDED. WILL CONTINUE TO MONITOR.
== END 2018-11-26 20:00 | disposition home health service (06) | DRG 871 ==
LOC: ER 18:27 → CCU 21:24 → TELE3 11-21 17:25 → MEDSURG3 11-24 11:57
PROVIDERS: ADMIT Internal Medicine; ATTEND Internal Medicine
PROC: 02HV33Z Insertion of Infusion Device into Superior Vena Cava, Percutaneous Approach (ICD-10-PCS; principal; 2018-11-20)
DX: A41.81 Sepsis due to Enterococcus (principal); G92 Toxic encephalopathy; N17.0 Acute kidney failure with tubular necrosis; I50.33 Acute on chronic diastolic (congestive) heart failure; J69.0 Pneumonitis due to inhalation of food and vomit; R65.21 Severe sepsis with septic shock; E43 Unspecified severe protein-calorie malnutrition; N39.0 Urinary tract infection, site not specified; D68.59 Other primary thrombophilia; G91.2 (Idiopathic) normal pressure hydrocephalus; E27.40 Unspecified adrenocortical insufficiency; J98.11 Atelectasis; K92.2 Gastrointestinal hemorrhage, unspecified; G30.9 Alzheimer's disease, unspecified; F02.80 Dementia in other diseases classified elsewhere, unspecified severity, without behavioral disturbance, psychotic disturbance, mood disturbance, and anxiety; Z16.21 Resistance to vancomycin; Z87.440 Personal history of urinary (tract) infections; Z86.73 Personal history of transient ischemic attack (TIA), and cerebral infarction without residual deficits; Z85.51 Personal history of malignant neoplasm of bladder; Z93.6 Other artificial openings of urinary tract status; Z98.42 Cataract extraction status, left eye; Z98.41 Cataract extraction status, right eye; M81.0 Age-related osteoporosis without current pathological fracture; Z85.841 Personal history of malignant neoplasm of brain; Z92.3 Personal history of irradiation; E03.9 Hypothyroidism, unspecified; I25.2 Old myocardial infarction; Z68.20 Body mass index [BMI] 20.0-20.9, adult; K44.9 Diaphragmatic hernia without obstruction or gangrene; Z74.09 Other reduced mobility; F32.9 Major depressive disorder, single episode, unspecified; I70.0 Atherosclerosis of aorta; J43.9 Emphysema, unspecified; Z79.82 Long term (current) use of aspirin; I25.10 Atherosclerotic heart disease of native coronary artery without angina pectoris; I95.1 Orthostatic hypotension; M85.80 Other specified disorders of bone density and structure, unspecified site; D50.0 Iron deficiency anemia secondary to blood loss (chronic)
CPT/HCPCS: 36415; 36569; 70030-TC; 70450; 71045; 71250; 83550; 83605; 83735; 84100; 84443; 85025; 85730; 87040; 87077; 87086; 93005; A4663; G0378; J0696; J2185; J2543; J3475; J3490; J7030; J7040; J7060

== ENCOUNTER 2018-11-30 18:19 | Inpatient (IN) | payer MEDICARE, BC ==
[~2018-11-30] VITALS: Ht 152.4 cm; Wt 43.6 kg
[~2018-11-30 18:19] MED LIST changes: +LEVO75TA7 PO; +LINE600T PO; +ONDA4TAB10 PO
[2018-11-30] MEDS ORDERED: CEFTRIAXONE 1 G in IV DEXTROSE 5% 50 ML IV ONE (18:45)
[2018-11-30] MEDS ORDERED: IV NORMAL SALINE 1000 ML BAG IV ONE (18:45)
[2018-11-30] MEDS ORDERED: CEFTRIAXONE 500 MG VIAL ONE (18:50)
--- NOTE | 2018-11-30 19:01 | NUR ---
Hands off report given to MCKENNA Bartholomew
[2018-11-30 19:11] LABS: BASOPHILS % (AUTO) 0.3 % (0.0-2.0); EOSINOPHILS # (AUTO) 0.1 K/uL (0.0-0.7); EOSINOPHILS % (AUTO) 0.5 % (0.0-7.0); HEMOGLOBIN 10.6 g/dL (10.9-14.3); LYMPHOCYTES # (AUTO) 1.3 K/uL (20.0-40.0); LYMPHOCYTES % (AUTO) 9.3 % (20.5-51.5); MEAN CORPUSCULAR HEMOGLOBIN 27.1 uug (24.7-32.8); MEAN CORPUSCULAR HGB CONC 32 g/dL (32.3-35.6); MEAN CORPUSCULAR VOLUME 84.2 fL (75.5-95.3); MONOCYTES # (AUTO) 0.2 K/uL (2.0-10.0); MONOCYTES % (AUTO) 1.6 % (0.0-11.0); NEUTROPHILS # (AUTO) 12.6 K/uL (1.8-8.9); NEUTROPHILS % (AUTO) 88.3 % (38.5-71.5); PLATELET COUNT (AUTO) 506 K/uL (179-408); RED BLOOD CELL COUNT(AUTO) 3.92 MIL/uL (3.63-4.92); WHITE BLOOD COUNT (AUTO) 14.3 K/uL (3.8-11.8)
[2018-11-30 19:21] LABS: CARBON DIOXIDE 28 mmol/L (21-32); CHLORIDE 101 mmol/L (98-107); CREATININE 0.9 mg/dL (0.6-1.3); GLUCOSE 102 mg/dL (74-106); POTASSIUM 3.9 mmol/L (3.5-5.1); UREA NITROGEN, BLOOD 30 mg/dL (7-18)
[2018-11-30 19:29] LABS: ALANINE AMINOTRANSFERASE 16 U/L (14-59); ALKALINE PHOSPHATASE 137 U/L (50-136); ASPARTATE AMINOTRANSFERASE 12 U/L (15-37); BILIRUBIN,DIRECT 0.1 mg/dL (0.0-0.2); BILIRUBIN,TOTAL 0.3 mg/dL (0.1-1.0); TOTAL PROTEIN, SERUM 7.2 g/dL (6.4-8.2)
--- NOTE | 2018-11-30 19:32 | NUR ---
Tequila Vasquez CABLE MAINTAINER from [facility] here to ce morrison
[2018-11-30 20:02] LABS: THYROID STIMULATING HORMONE 2.532 mIU/mL (0.358-3.740)
[2018-11-30 20:11] LABS: *BILIRUBIN,URIN NEGATIVE (NEGATIVE); *COLOR,URINE YELLOW (YELLOW); *KETONES,URINE NEGATIVE (NEGATIVE); *UROBILINOGEN,URINE 0.2 E.U./dl (NORMAL); LEUKOCYTE ESTERASE ,URINE TRACE (NEGATIVE); NITRITE, URINE NEGATIVE (NEGATIVE); UGLUCOSE NEGATIVE (NEGATIVE)
[2018-11-30] MEDS ORDERED: SWABABLE VALVE TRANSFER SET EA MC ONE (20:13)
[2018-11-30] MEDS ORDERED: IOHEXOL 300MG/ML 100 ML INFUS..BTL ONE (20:13)
[2018-11-30] MEDS ORDERED: NORMAL SALINE FLUSH 10 ML DISP.SYRIN ONE (20:13)
[2018-11-30] MEDS ORDERED: IV NORMAL SALINE 250 ML IV ONE (20:13)
[2018-11-30] MEDS ORDERED: PANTOPRAZOLE SODIUM IV 40 MG in IV DEXTROSE 5% 100 ML IV ONE (20:15)
[2018-11-30] MEDS ORDERED: PANTOPRAZOLE SODIUM IV 80 MG in IV DEXTROSE 5% 100 ML IV ONE (20:15)
[2018-11-30 20:20] LABS: *BLOOD, URINE TRACE (NEGATIVE); *CLARITY,URINE SLIGHTLY HAZY (CLEAR)
[2018-11-30 20:23] LABS: MUCUS,URINE FEW /LPF (0-FEW); YEAST,URINE FEW /HPF (NONE SEEN)
[2018-11-30] MEDS ORDERED: PANTOPRAZOLE SODIUM 40 MG VIAL ONE (20:26)
--- NOTE | 2018-11-30 21:54 | NUR ---
Unable to insert NG tube. Dr Peña aware
--- NOTE | 2018-11-30 21:56 | NUR ---
Picc Lined nurse into insert Picc Line
--- NOTE | 2018-11-30 22:20 | NUR ---
[facility]
[2018-11-30 22:40] VITALS: BP 131/62
--- NOTE | 2018-11-30 22:40 | NUR ---
Admitted a 83 year old female with diagnosis of UPPER GI BLEED. Patient is only responsive to name and pain. Bedfast. NPO. Urostomy with night drainage bag noted with clear yellow output. Had one bowel movement that was soft and brown. Patient on RA. Red and purple ecchymosis noted on upepr and lower extremities. Midline on right upper arm #18 intact and patent. Routine admission care done. Plan of care initiated. Safety and comfort measures implemented. Will monitor throughout shift.
[2018-11-30] MEDS ORDERED: Z GUARD REMEDY PASTE 57 GM TUBE TOP PRN (22:45)
[2018-11-30] MEDS ORDERED: ONDANSETRON 4 MG/2 ML VIAL IV PRN (22:45)
[2018-11-30] MEDS ORDERED: LEVOFLOXACIN 750MG/D5W 750 MG in PREMIXED 1 EACH IV SCH (22:45)
[2018-11-30] MEDS ORDERED: MAGNESIUM HYDROXIDE 30 ML LIQUID UDC PO PRN (22:45)
[2018-11-30] MEDS ORDERED: ACETAMINOPHEN 325 MG TABLET PO PRN (22:45)
[2018-11-30] MEDS ORDERED: MIDODRINE HCL 5 MG TABLET PO PRN (23:15)
[2018-11-30] MEDS ORDERED: FLUCONAZOLE 200 MG/100 ML PIGGYBACK ONE (23:36)
[2018-11-30] MEDS ORDERED: CEFTRIAXONE 1 G VIAL ONE ×2 (23:36→23:38)
[2018-11-30] MEDS ORDERED: LEVOFLOXACIN 750MG/D5W 150 ML IV ONE (23:37)
[2018-11-30] MEDS: IV NS 1000 ML 1,000 ML IV PRN (23:53)
[2018-11-30] MEDS: FLUCONAZOLE 200 MG/NS 100ML IV 100 MG in PREMIXED 1 EACH IV SCH (23:54)
[2018-12-01 03:08] VITALS: BP 126/56
--- NOTE | 2018-12-01 05:37 | NUR ---
Patient slept throughout most of the night. No emesis or nausea noted. No change in status. Patient kept comfortable. Continue plan of care.
[2018-12-01 06:43] LABS: BASOPHILS # (AUTO) 0.1 K/uL (0.0-8.0); BASOPHILS % (AUTO) 0.7 % (0.0-2.0); EOSINOPHILS # (AUTO) 0.2 K/uL (0.0-0.7); EOSINOPHILS % (AUTO) 1.9 % (0.0-7.0); HEMATOCRIT 26.2 % (31.2-41.9); HEMOGLOBIN 8.7 g/dL (10.9-14.3); LYMPHOCYTES # (AUTO) 0.9 K/uL (20.0-40.0); MEAN CORPUSCULAR HEMOGLOBIN 28.2 uug (24.7-32.8); MEAN CORPUSCULAR HGB CONC 33 g/dL (32.3-35.6); MEAN CORPUSCULAR VOLUME 84.5 fL (75.5-95.3); MONOCYTES # (AUTO) 0.4 K/uL (2.0-10.0); MONOCYTES % (AUTO) 3.6 % (0.0-11.0); NEUTROPHILS # (AUTO) 8.7 K/uL (1.8-8.9); NEUTROPHILS % (AUTO) 84.8 % (38.5-71.5); PLATELET COUNT (AUTO) 456 K/uL (179-408); WHITE BLOOD COUNT (AUTO) 10.3 K/uL (3.8-11.8)
[2018-12-01 07:01] LABS: CARBON DIOXIDE 27 mmol/L (21-32); CHLORIDE 107 mmol/L (98-107); CHOLESTEROL 173 mg/dL (<200); CREATININE 0.8 mg/dL (0.6-1.3); GLUCOSE 72 mg/dL (74-106); HDL CHOLESTEROL 70 mg/dL (40-60); MAGNESIUM 1.9 mg/dL (1.8-2.4); PHOSPHOROUS 2.7 mg/dL (2.5-4.9); POTASSIUM 4.1 mmol/L (3.5-5.1); TRIGLYCERIDES 101 MG/DL (30-150); UREA NITROGEN, BLOOD 30 mg/dL (7-18)
[2018-12-01] MEDS: LEVOTHYROXINE SODIUM 75 MCG TABLET PO SCH (07:05)
[2018-12-01] MEDS ORDERED: MIDODRINE HCL 5 MG TABLET PO PRN (08:15)
[2018-12-01] MEDS: PANTOPRAZOLE SODIUM 40 MG VIAL IV SCH ×2 (08:16→16:48)
[2018-12-01] MEDS ORDERED: Medication Not On Formulary EA (Sertraline Hcl (Zoloft) 12.5 MG) PO SCH (09:00)
[2018-12-01] MEDS ORDERED: SERTRALINE HCL 50 MG TABLET PO SCH (09:00)
[2018-12-01] MEDS ORDERED: ASPIRIN 81 MG TAB.CHEW PO SCH ×2 (09:00)
[2018-12-01] MEDS: OCTREOTIDE ACETATE DRIP 1,250 MCG in IV NORMAL SALINE 247.5 ML IV PRN (09:10)
[2018-12-01 11:28] VITALS: BP 109/57
[2018-12-01 12:22] LABS: HEMOGLOBIN 8.2 g/dL (10.9-14.3)
[2018-12-01] MEDS: METOCLOPRAMIDE HCL 10 MG/2 ML VIAL IV SCH ×2 (15:22→22:18)
[2018-12-01 15:45] VITALS: BP 111/43
[2018-12-01 15:57] LABS: FERRITIN 140 ng/mL (8-252)
[2018-12-01] MEDS: SUCRALFATE 1 G/10 ML LIQUID UDC PO SCH ×2 (16:21→21:00)
[2018-12-01] MEDS: CEFTRIAXONE 1 G in IV DEXTROSE 5% 50 ML IV SCH (17:08)
[2018-12-01] MEDS ORDERED: CEFTRIAXONE 2 G in IV DEXTROSE 5% 100 ML IV SCH (19:00)
--- NOTE | 2018-12-01 19:30 | NUR ---
PATIENT RECEIVED LYING IN BED AND CONFUSED. NO SIGNS OF ACUTE DISTRESS. COMFORT MEASURES PROVIDED. BED IN LOWEST POSITION. SIDE RAILS X2.
[2018-12-01 20:09] LABS: HEMATOCRIT 24.3 % (31.2-41.9)
[2018-12-01 20:16] VITALS: BP 126/42
[2018-12-01 20:28] LABS: IRON, SERUM 139 ug/dL (50-175)
[2018-12-01] MEDS: FLUCONAZOLE 200 MG/NS 100ML IV 100 MG in PREMIXED 1 EACH IV SCH (23:58)
[2018-12-02] VITALS (13 sets, daily range): BP systolic 110–143; BP diastolic 30–57
[2018-12-02] MEDS ORDERED: OCTREOTIDE ACETATE 500 MCG/1 ML VIAL ONE (02:07)
[2018-12-02] MEDS ORDERED: OCTREOTIDE ACETATE 100 MCG/1 MLVIAL ONE (02:22)
[2018-12-02] MEDS ORDERED: OCTREOTIDE ACETATE 50 MCG/1 ML ML ONE (02:23)
--- NOTE | 2018-12-02 02:30 | NUR ---
Sandostatin drip was accidentally thrown by MCKENNA Rdz; new bag restarted.
[2018-12-02] MEDS: OCTREOTIDE ACETATE DRIP 1,250 MCG in IV NORMAL SALINE 247.5 ML IV PRN (02:46)
[2018-12-02] MEDS: IV NS 1000 ML 1,000 ML IV PRN ×2 (02:49→17:56)
[2018-12-02 04:35] LABS: BASOPHILS # (AUTO) 0.1 K/uL (0.0-8.0); BASOPHILS % (AUTO) 0.8 % (0.0-2.0); EOSINOPHILS # (AUTO) 0.3 K/uL (0.0-0.7); HEMATOCRIT 24.4 % (31.2-41.9); LYMPHOCYTES # (AUTO) 1.3 K/uL (20.0-40.0); LYMPHOCYTES % (AUTO) 19.3 % (20.5-51.5); MEAN CORPUSCULAR HEMOGLOBIN 27.7 uug (24.7-32.8); MEAN CORPUSCULAR HGB CONC 33 g/dL (32.3-35.6); MEAN CORPUSCULAR VOLUME 84.6 fL (75.5-95.3); MONOCYTES # (AUTO) 0.4 K/uL (2.0-10.0); MONOCYTES % (AUTO) 5.1 % (0.0-11.0); NEUTROPHILS # (AUTO) 4.8 K/uL (1.8-8.9); NEUTROPHILS % (AUTO) 69.8 % (38.5-71.5); PLATELET COUNT (AUTO) 382 K/uL (179-408); RED BLOOD CELL COUNT(AUTO) 2.88 MIL/uL (3.63-4.92); WHITE BLOOD COUNT (AUTO) 6.9 K/uL (3.8-11.8)
[2018-12-02 04:46] LABS: CARBON DIOXIDE 26 mmol/L (21-32); CHLORIDE 110 mmol/L (98-107); CREATININE 0.8 mg/dL (0.6-1.3); GLUCOSE 54 mg/dL (74-106); MAGNESIUM 1.8 mg/dL (1.8-2.4); POTASSIUM 4.1 mmol/L (3.5-5.1); UREA NITROGEN, BLOOD 24 mg/dL (7-18)
[2018-12-02] MEDS: METOCLOPRAMIDE HCL 10 MG/2 ML VIAL IV SCH ×2 (06:59→13:34)
[2018-12-02] MEDS: LEVOTHYROXINE SODIUM 75 MCG TABLET PO SCH (07:00)
--- NOTE | 2018-12-02 07:26 | NUR ---
SHIFT REPORT GIVEN TO AM SHIFT. PATIENT INTERMITTENTLY SLEEPING. A/O X3. NO SIGNS OF ACUTE DISTRESS. COMFORT MEASURES PROVIDED. BED IN LOWEST POSITION. SIDE RAILS UP X2. DAUGHTER WILL BE HERE TO SIGN CONSENT.
[2018-12-02] MEDS: SUCRALFATE 1 G/10 ML LIQUID UDC PO SCH ×4 (07:30→20:37)
[2018-12-02] MEDS: PANTOPRAZOLE SODIUM 40 MG VIAL IV SCH ×2 (07:59→16:14)
[2018-12-02] MEDS ORDERED: FENTANYL CITRATE 100 MCG/2 ML AMPUL ONE (08:42)
--- NOTE | 2018-12-02 09:45 | NUR ---
pt went to gi lab for gi procedure via bed in stable condition
--- NOTE | 2018-12-02 11:23 | NUR ---
pt received from recovery room via bed in stable condition
[2018-12-02 11:57] LABS: HEMATOCRIT 24.8 % (31.2-41.9); HEMOGLOBIN 8.1 g/dL (10.9-14.3)
[2018-12-02] MEDS ORDERED: IV D5W-LACTATED RINGE 1000 ML BAG IV ONE (12:22)
[2018-12-02] MEDS ORDERED: PROPOFOL 200 MG/20 ML BOTTLE IV ONE (12:22)
[2018-12-02] MEDS ORDERED: IRR STERIL WATER FOR IRR 1000 ML BOTTLE IR ONE (12:22)
[2018-12-02] MEDS: CEFTRIAXONE 1 G in IV DEXTROSE 5% 50 ML IV SCH (17:11)
--- NOTE | 2018-12-02 19:30 | NUR ---
Received patient awake in bed, confused. Not in any form of distress. Noted with oxygen support at 2lpm via nasal cannula, tolerated. With midline at right upper arm to running IV fluid, infusing well. With urostomy to urine bag, intact. No complaints at the moment. Bed in low position, locked, side rails up x 2. Noise and lights subdued. Will continue to monitor.
--- NOTE | 2018-12-02 20:30 | NUR ---
Latest hgb is 7.4 and hct is 22.8, noted standing order to transfuse blood if hgb<8. Tequila Vasquez NP updated on latest H&H, who agreed to transfuse 1 unit PRBC now.
[2018-12-02 20:40] LABS: HEMATOCRIT 22.8 % (31.2-41.9)
[2018-12-02 20:41] LABS: HEMOGLOBIN 7.4 g/dL (10.9-14.3)
--- NOTE | 2018-12-02 21:00 | NUR ---
Noted consent for blood transfusion on the chart signed by patient's publications sales representative and dated today. Contacted Valeri to inform her that patient will be getting a blood transfusion to which she agreed to.
--- NOTE | 2018-12-02 22:31 | NUR ---
Started blood transfusion of 1 unit PRBC following hospital protocol, will closely monitor patient.
[2018-12-03] VITALS (7 sets, daily range): BP systolic 111–130; BP diastolic 45–58
[2018-12-03] MEDS: FLUCONAZOLE 200 MG/NS 100ML IV 100 MG in PREMIXED 1 EACH IV SCH ×2 (01:18→23:36)
--- NOTE | 2018-12-03 01:30 | NUR ---
1 unit PRBC transfused, patient stable and no noted adverse reactions.
[2018-12-03] MEDS ORDERED: LEVOFLOXACIN 750MG/D5W 750 MG in PREMIXED 1 EACH IV SCH (02:00)
--- NOTE | 2018-12-03 05:47 | NUR ---
Patient slept intermittently throughout the night. Not in any form of distress. Patient tolerating room air. Still with midline at right upper arm to running IV fluid, infusing well. With urostomy to urine bag, intact. No complaints made. No adverse reaction to blood transfusion noted.
[2018-12-03 06:18] LABS: BASOPHILS # (AUTO) 0.1 K/uL (0.0-8.0); BASOPHILS % (AUTO) 0.8 % (0.0-2.0); EOSINOPHILS # (AUTO) 0.3 K/uL (0.0-0.7); EOSINOPHILS % (AUTO) 3.8 % (0.0-7.0); HEMOGLOBIN 9.4 g/dL (10.9-14.3); LYMPHOCYTES % (AUTO) 13.4 % (20.5-51.5); MEAN CORPUSCULAR HEMOGLOBIN 28.6 uug (24.7-32.8); MEAN CORPUSCULAR HGB CONC 34 g/dL (32.3-35.6); MEAN CORPUSCULAR VOLUME 85.4 fL (75.5-95.3); MONOCYTES # (AUTO) 0.6 K/uL (2.0-10.0); MONOCYTES % (AUTO) 7.6 % (0.0-11.0); NEUTROPHILS # (AUTO) 5.7 K/uL (1.8-8.9); NEUTROPHILS % (AUTO) 74.4 % (38.5-71.5); PLATELET COUNT (AUTO) 282 K/uL (179-408); RED BLOOD CELL COUNT(AUTO) 3.28 MIL/uL (3.63-4.92); WHITE BLOOD COUNT (AUTO) 7.7 K/uL (3.8-11.8)
[2018-12-03] MEDS: LEVOTHYROXINE SODIUM 75 MCG TABLET PO SCH (06:22)
[2018-12-03 06:24] LABS: CARBON DIOXIDE 23 mmol/L (21-32); CHLORIDE 111 mmol/L (98-107); CREATININE 0.7 mg/dL (0.6-1.3); GLUCOSE 124 mg/dL (74-106); MAGNESIUM 1.4 mg/dL (1.8-2.4); PHOSPHOROUS 2.1 mg/dL (2.5-4.9); POTASSIUM 3.6 mmol/L (3.5-5.1); UREA NITROGEN, BLOOD 17 mg/dL (7-18)
[2018-12-03] MEDS: SUCRALFATE 1 G/10 ML LIQUID UDC PO SCH ×4 (06:33→21:07)
--- NOTE | 2018-12-03 08:00 | NUR ---
RESTING WITH EYES CLOSE, NO SS OF DISTRESS OR ACUTE PAIN. SR ON MONITOR
[2018-12-03] MEDS: PANTOPRAZOLE SODIUM 40 MG VIAL IV SCH ×2 (08:09→17:14)
--- NOTE | 2018-12-03 09:00 | NUR ---
SEEN BY SECTION CHIEF NOTED ABNORMAL LABS WITH ORDERS. SEE NOTES
[2018-12-03] MEDS ORDERED: NEUTRA PHOS PACKET PO ONE (09:13)
[2018-12-03] MEDS: MAGNESIUM SULFATE/D5W 100 ML IV SCH ×4 (09:46→12:03)
--- NOTE | 2018-12-03 12:29 | NUR ---
MG AND PHOS REPLACEMENT DONE. NO ACUTE CHANGE
[2018-12-03 12:40] LABS: HEMATOCRIT 29.3 % (31.2-41.9); HEMOGLOBIN 9.8 g/dL (10.9-14.3)
--- NOTE | 2018-12-03 14:00 | NUR ---
NOTED MULTIPLE R ON T ON MONITOR STRIP PER RECRUITING SCHEDULER АНДРЕЙ MADE AWARE AND SAID TO CONTINUE WITH TELE MONITORING. PATIENT REMAINS IN NO DISTRESS OR SS OF PAIN OR SOB. CLOSELY MONITORED
[2018-12-03] MEDS: CEFTRIAXONE 1 G in IV DEXTROSE 5% 50 ML IV SCH (17:15)
[2018-12-03] MEDS: IV NS 1000 ML 1,000 ML IV PRN (17:55)
--- NOTE | 2018-12-03 18:05 | NUR ---
CONTINUE WITH IV AND IV ATB THERAPY NO ADVERSE REACTION NOTED. SEEN BY SOLID FIBER PASTER OPERATOR FOR ID FOLLOW-UP SEE NOTES
--- NOTE | 2018-12-03 19:30 | NUR ---
Received patient resting in bed, easily to arouse. No signs of acute distress noted. No signs of pain or SOB, patient on room air saturating at 95%. IVF running on the HAKEEM midline. Urostomy is intact. Tele monitor is intact. Safety measures initiated. Bed is low and locked, call light is within reach. Will continue to monitor.
[2018-12-04] VITALS: BP 144/62
[2018-12-04 00:27] LABS: HEMATOCRIT 31.6 % (31.2-41.9); HEMOGLOBIN 10.6 g/dL (10.9-14.3)
[2018-12-04 04:00] VITALS: BP 122/59
--- NOTE | 2018-12-04 05:56 | NUR ---
Patient slept well throughout shift. No signs of acute distress noted. No signs of pain or SOB. IVF running on the HAKEEM midline. Midnight lab of H/H shows it trending up at 10.6/31.6 Urostomy intact and draining clear, yellow urine with an output of 854cc. Medications given as ordered and tolerated well. Safety measures given. Will endorse to next shift plan of care.
[2018-12-04] MEDS: SUCRALFATE 1 G/10 ML LIQUID UDC PO SCH ×4 (06:32→20:40)
[2018-12-04] MEDS: LEVOTHYROXINE SODIUM 75 MCG TABLET PO SCH (06:32)
[2018-12-04 06:41] LABS: BASOPHILS % (AUTO) 0.4 % (0.0-2.0); EOSINOPHILS # (AUTO) 0.5 K/uL (0.0-0.7); EOSINOPHILS % (AUTO) 6.6 % (0.0-7.0); HEMATOCRIT 29.9 % (31.2-41.9); LYMPHOCYTES # (AUTO) 1.4 K/uL (20.0-40.0); LYMPHOCYTES % (AUTO) 16.5 % (20.5-51.5); MEAN CORPUSCULAR HEMOGLOBIN 28.2 uug (24.7-32.8); MEAN CORPUSCULAR HGB CONC 33 g/dL (32.3-35.6); MEAN CORPUSCULAR VOLUME 84.4 fL (75.5-95.3); MONOCYTES % (AUTO) 11.8 % (0.0-11.0); NEUTROPHILS # (AUTO) 5.4 K/uL (1.8-8.9); NEUTROPHILS % (AUTO) 64.7 % (38.5-71.5); PLATELET COUNT (AUTO) 280 K/uL (179-408); RED BLOOD CELL COUNT(AUTO) 3.54 MIL/uL (3.63-4.92); WHITE BLOOD COUNT (AUTO) 8.3 K/uL (3.8-11.8)
[2018-12-04 06:57] LABS: CARBON DIOXIDE 26 mmol/L (21-32); CHLORIDE 107 mmol/L (98-107); CREATININE 0.7 mg/dL (0.6-1.3); GLUCOSE 70 mg/dL (74-106); PHOSPHOROUS 1.5 mg/dL (2.5-4.9); POTASSIUM 3.2 mmol/L (3.5-5.1)
[2018-12-04 07:10] LABS: UREA NITROGEN, BLOOD 12 mg/dL (7-18)
--- NOTE | 2018-12-04 07:58 | NUR ---
POTASSIUM LENEL IS 3.2 REVIEWED BY PILLO CHIAGN WITH NEW REPLACEMENT ORDERS AND NOTED PATIENT IS ALERT TO SELF WITH CONFUSSION AND DISORIENTATION ALL NEEDS ANTICIPATED AND SATISFIED MAX ASSIST FOR ALL ADL MADE COMFORTABLE AND WILL CONTINUE TO OBSERVE.
[2018-12-04] MEDS: POTASSIUM CHLORIDE 50 ML IV SCH ×3 (08:10→10:38)
[2018-12-04] MEDS: PANTOPRAZOLE SODIUM 40 MG VIAL IV SCH ×2 (08:11→16:50)
[2018-12-04] MEDS: IV NS 1000 ML 1,000 ML IV PRN (08:15)
[2018-12-04] MEDS: SERTRALINE HCL 50 MG TABLET PO SCH (10:38)
[2018-12-04 11:00] VITALS: BP 118/73
[2018-12-04] MEDS ORDERED: IV NS 1000 ML 1,000 ML IV PRN (11:58)
[2018-12-04] MEDS ORDERED: NEUTRA PHOS PACKET PO ONE (12:00)
--- NOTE | 2018-12-04 13:34 | NUR ---
DISCHARGE PLANNING PATIENTS DAUGHTER BROCK IS HERE AND THE RADIO DISC JOCKEY AND THE AUTOMOTIVE WINDOW TINTER ARE BOTH AWARE WILL TALK TO HER SOON POSSIBLE.
[2018-12-04 15:00] VITALS: BP 148/71
--- NOTE | 2018-12-04 18:00 | NUR ---
NURSERY MANAGER AND PATIENTS DAUGHTER SPOKE AT LENGTH AND THE PLAN IS TI DISCHARGE HER TOMORROW BUT DESTINATION IS STILL UNCERTAIN.
[2018-12-04 19:28] VITALS: BP 151/69
--- NOTE | 2018-12-04 19:30 | NUR ---
Received patient resting in bed, easily to arouse. No signs of acute distress noted. No signs of pain or SOB. IVF running on the HAKEEM midline. Urostomy is intact and draining clear, yellow urine. Safety measures initiated. Bed is low and locked, call light within reach. Will continue to monitor.
[2018-12-04] MEDS: FLUCONAZOLE 200 MG/NS 100ML IV 100 MG in PREMIXED 1 EACH IV SCH (23:27)
--- NOTE | 2018-12-05 06:06 | NUR ---
Patient slept intermittently. No signs of acute distress. No signs of pain or SOB. Patient seems more alert. IVF running on the HAKEEM. All medications given as ordered. Safety measures given.
[2018-12-05] MEDS: LEVOTHYROXINE SODIUM 75 MCG TABLET PO SCH (06:11)
[2018-12-05] MEDS: SUCRALFATE 1 G/10 ML LIQUID UDC PO SCH ×2 (06:36→11:39)
--- NOTE | 2018-12-05 07:36 | NUR ---
PATIENT RECEIVED IN BED ASLEEP WITH EYES CLOSED SEEMS COMFORTABLE ON ROUND NO S/S OF SOB REMAINS ON IVF ORDERED WITH NO S/S OF INFILTERATION ON SITE MADE COMFORTABLE WILL CONTINUE TO OBSERVE.
[2018-12-05] MEDS ORDERED: PANT40TA2 PO (08:08)
[2018-12-05] MEDS ORDERED: SUCR1ORA PO (08:08)
[2018-12-05] MEDS ORDERED: FLUC200T PO (08:08)
[2018-12-05] MEDS: PANTOPRAZOLE SODIUM 40 MG VIAL IV SCH (08:09)
[2018-12-05] MEDS: SERTRALINE HCL 50 MG TABLET PO SCH (08:09)
--- NOTE | 2018-12-05 10:22 | NUR ---
PATIENT WILL BE PICKED UP BY THE AMBULANCE AT [address] THE NEST WHERE SHE LIVES SON AWARE
--- NOTE | 2018-12-05 10:31 | NUR ---
PER THE ACID STRENGTH INSPECTOR PATIENT WILL BE DISCHARGED TO THE NEST BUT NO HOSPICE WILL BE FOLLOWED BY [facility].
[2018-12-05 11:37] VITALS: BP 147/60
--- NOTE | 2018-12-05 12:23 | NUR ---
PATIENT DISCHARGED PICKED UP BY THE AMBULANCE IN SATISFACTORY CONDITION WITH DISCHARGE INSTRUCTIONS AND PRESCRIPTIONS AND PATIENTS SON VIANNEY WAS HERE AND WAS INSTRUCTED TO FOLLOW UP WITH THE [facility] RE MID LINE AND HE EXPRESSED UNDERSTANDING.UROSTOMY IS INTACT AT THIS TIME WITH YELLOW URINE.
== END 2018-12-05 12:23 | disposition home health service (06) | DRG 380 ==
LOC: ER 18:19 → MEDSURG3 21:41 → TELE3 12-01 08:40 → MEDSURG3 12-04 12:56
PROVIDERS: ADMIT Registered Nurse; ATTEND Registered Nurse
PROC: 05HY33Z Insertion of Infusion Device into Upper Vein, Percutaneous Approach (ICD-10-PCS; principal; 2018-11-30)
PROC: 30243N1 Transfusion of Nonautologous Red Blood Cells into Central Vein, Percutaneous Approach (ICD-10-PCS; 2018-12-02)
PROC: 0DB98ZX Excision of Duodenum, Via Natural or Artificial Opening Endoscopic, Diagnostic (ICD-10-PCS; 2018-12-02)
PROC: 0DB48ZX Excision of Esophagogastric Junction, Via Natural or Artificial Opening Endoscopic, Diagnostic (ICD-10-PCS; 2018-12-02)
PROC: 0DB68ZX Excision of Stomach, Via Natural or Artificial Opening Endoscopic, Diagnostic (ICD-10-PCS; 2018-12-02)
DX: K22.11 Ulcer of esophagus with bleeding (principal); A41.9 Sepsis, unspecified organism; J69.0 Pneumonitis due to inhalation of food and vomit; E43 Unspecified severe protein-calorie malnutrition; G92 Toxic encephalopathy; R53.2 Functional quadriplegia; D62 Acute posthemorrhagic anemia; C79.31 Secondary malignant neoplasm of brain; C78.80 Secondary malignant neoplasm of unspecified digestive organ; K56.7 Ileus, unspecified; Z68.1 Body mass index [BMI] 19.9 or less, adult; B37.49 Other urogenital candidiasis; N13.2 Hydronephrosis with renal and ureteral calculous obstruction; E27.40 Unspecified adrenocortical insufficiency; J98.11 Atelectasis; G91.2 (Idiopathic) normal pressure hydrocephalus; I50.42 Chronic combined systolic (congestive) and diastolic (congestive) heart failure; D68.59 Other primary thrombophilia; G30.9 Alzheimer's disease, unspecified; F02.80 Dementia in other diseases classified elsewhere, unspecified severity, without behavioral disturbance, psychotic disturbance, mood disturbance, and anxiety; E86.0 Dehydration; E03.9 Hypothyroidism, unspecified; Z93.3 Colostomy status; Z93.6 Other artificial openings of urinary tract status; K44.9 Diaphragmatic hernia without obstruction or gangrene; K31.9 Disease of stomach and duodenum, unspecified; Z85.51 Personal history of malignant neoplasm of bladder; Z90.710 Acquired absence of both cervix and uterus; Z90.6 Acquired absence of other parts of urinary tract; Z87.440 Personal history of urinary (tract) infections; M80.08XD Age-related osteoporosis with current pathological fracture, vertebra(e), subsequent encounter for fracture with routine healing; K57.90 Diverticulosis of intestine, part unspecified, without perforation or abscess without bleeding; Z66 Do not resuscitate; Z86.73 Personal history of transient ischemic attack (TIA), and cerebral infarction without residual deficits; M19.90 Unspecified osteoarthritis, unspecified site; I95.1 Orthostatic hypotension; Z79.899 Other long term (current) drug therapy; N99.89 Other postprocedural complications and disorders of genitourinary system; J43.9 Emphysema, unspecified; I70.0 Atherosclerosis of aorta; J40 Bronchitis, not specified as acute or chronic
CPT/HCPCS: 36415; 36569; 70030-TC; 71045; 74018; 83550; 83605; 83735; 84100; 84443; 85018; 85025; 85730; 86850; 86900; 86901; 86920; 87040; 87086; 88342; 93005; 97110; A4217; A4663; C9113; G0378; J0696; J1450; J1956; J2354; J2765; J3010; J3475; J3480; J3490; J7030; J7050; J7060; P9016-BL; P9021; Q9967

== ENCOUNTER 2018-12-25 13:12 | Emergency (ER) | payer MEDICARE, BC ==
[~2018-12-25] VITALS: Ht 152.4 cm; Wt 45.4 kg
[~2018-12-25 13:12] MED LIST changes: +FLUC200T PO; -LINE600T PO; +PANT40TA2 PO; +SUCR1ORA PO
[2018-12-25] MEDS ORDERED: IV NORMAL SALINE 500 ML BAG IV ONE (13:30)
[2018-12-25 13:34] LABS: BASOPHILS # (AUTO) 0.1 K/uL (0.0-8.0); EOSINOPHILS # (AUTO) 0.5 K/uL (0.0-0.7); EOSINOPHILS % (AUTO) 7.1 % (0.0-7.0); HEMATOCRIT 33.4 % (31.2-41.9); HEMOGLOBIN 10.9 g/dL (10.9-14.3); LYMPHOCYTES # (AUTO) 1.7 K/uL (20.0-40.0); LYMPHOCYTES % (AUTO) 21.6 % (20.5-51.5); MEAN CORPUSCULAR HEMOGLOBIN 28.1 uug (24.7-32.8); MEAN CORPUSCULAR HGB CONC 33 g/dL (32.3-35.6); MEAN CORPUSCULAR VOLUME 85.8 fL (75.5-95.3); MONOCYTES # (AUTO) 0.8 K/uL (2.0-10.0); MONOCYTES % (AUTO) 10.6 % (0.0-11.0); NEUTROPHILS # (AUTO) 4.6 K/uL (1.8-8.9); NEUTROPHILS % (AUTO) 59.7 % (38.5-71.5); PLATELET COUNT (AUTO) 414 K/uL (179-408); RED BLOOD CELL COUNT(AUTO) 3.89 MIL/uL (3.63-4.92); WHITE BLOOD COUNT (AUTO) 7.7 K/uL (3.8-11.8)
[2018-12-25 13:42] LABS: CARBON DIOXIDE 31 mmol/L (21-32); CHLORIDE 99 mmol/L (98-107); CREATININE 0.7 mg/dL (0.6-1.3); GLUCOSE 79 mg/dL (74-106); UREA NITROGEN, BLOOD 12 mg/dL (7-18)
--- NOTE | 2018-12-25 13:59 | NUR ---
PT IS IN ROOM #2A. DR FOX EVALUATED THE PT.
[2018-12-25] MEDS ORDERED: TDAP DIPH,PERTUSS,TET VAC/PF 0.5 ML DISP.SYRIN IM ONE (14:30)
--- NOTE | 2018-12-25 17:24 | NUR ---
MIDDLE LINE WAS INSERTED BY PICC LINE MCKENNA DICKENS IN PT's RIGHT UPPER ARM. VENEZUELAN #5, 15 CM, RIGHT BRACHIAL. PT TOLERATED TO PROCEDURE WITHOUT COMPLICATIONS.
--- NOTE | 2018-12-25 18:54 | NUR ---
[facility] WAS CALLED , NUMBER : [id number] . VETO IS 30 MINUTES. TRIP NUMBER - [id number]. PT IS RESTING IN BED COMFORTABLY. REPORT GIVEN TO SQUEEGEE TENDER RN.
--- NOTE | 2018-12-25 19:02 | NUR ---
PT WAS TRANSFERD TO HOME VIA S AMBULANCE. REPORT WAS GIVEN TO AMBULANCE EMT. D/CINSTRUCTIONS GIVEN TO PT's SON.
[2018-12-25 19:03] VITALS: BP 153/81
== END 2018-12-25 19:04 | disposition home or self-care (01) ==
LOC: ER 13:12
DX: E86.0 Dehydration (principal); I50.9 Heart failure, unspecified; E03.9 Hypothyroidism, unspecified; Z88.2 Allergy status to sulfonamides; Z88.8 Allergy status to other drugs, medicaments and biological substances; Z79.82 Long term (current) use of aspirin; Z79.899 Other long term (current) drug therapy
CPT/HCPCS: 36415; 71045; 85025; 85730; A4663; J7040

== ENCOUNTER 2018-12-26 00:30 | Emergency (ER) | payer MEDICARE, BC ==
[~2018-12-26] VITALS: Ht 142.2 cm; Wt 49.9 kg
--- NOTE | 2018-12-26 01:10 | NUR ---
DR. PARK AT BEDSIDE FOR MSE.
[2018-12-26] MEDS ORDERED: IV NORMAL SALINE 1000 ML BAG IV ONE (01:30)
--- NOTE | 2018-12-26 01:32 | NUR ---
[facility] CALLED #[phone], ETA 30-45MIN.
--- NOTE | 2018-12-26 02:06 | NUR ---
[id number] HERE, REPORT GIVEN Rayna STACK.
--- NOTE | 2018-12-26 02:32 | NUR ---
Patient discharged to home in stable conditon. Written and verbal after care instructions given, REVIEWED WITH FAMILY FAMILY verbalizes understanding of instructions.
--- NOTE | 2018-12-26 02:32 | NUR ---
PATIENT DISCHARGED WITH MIDLINE IN RUE IN PLACE, PATENT.
[2018-12-26 02:34] VITALS: BP 135/88
== END 2018-12-26 02:38 | disposition home or self-care (01) ==
LOC: ER 00:32
DX: E86.0 Dehydration (principal); I50.9 Heart failure, unspecified; E03.9 Hypothyroidism, unspecified; Z90.710 Acquired absence of both cervix and uterus; Z88.2 Allergy status to sulfonamides; Z88.8 Allergy status to other drugs, medicaments and biological substances; Z79.82 Long term (current) use of aspirin; Z79.899 Other long term (current) drug therapy
CPT/HCPCS: A4663; J7030